=== PATIENT | female | born 1975 | race Caucasian/White ===

== ENCOUNTER → 2016-11-27 | Outpatient (CLI) | payer BC ==
--- NOTE | 2016-11-27 18:45 | PCVCIMAG ---
APPROVED REPORT Patient Location: Echo lab - TREADMILL STRESS TEST Room #: INDICATIONS: CHEST PAIN WITH EXERTION THE PATIENT EXERCISED ACCORDING TO THE LUIS MANUEL PROTOCOL FOR 13:19 MINUTES, ACHIEVING A WORK LEVEL OF 17.5 METS. THE RESTING HEART RATE OF 62 BPM MERRITT TO A MAXIMUM HEART RATE OF 179 BPM. THIS VALUE REPRESENTS 98% OF THE MAXIMAL, AGE-PREDICTED HEART RATE. THE RESTING BLOOD PRESSURE OF 120/80 MMHG, MERRTIT TO A MAXIMUM BLOOD PRESSURE OF 160/82 MMHG. THE EXERCISE TEST WAS STOPPED DUE TO FATIGUE. Conclusion Treadmill exercise stress is negative for ischemia in light of A no production of chest pain or angina B no diagnostic EKG changes C no evidence of significant ectopy is noted. D excellent exercise tolerance with an appropriate hemodynamic response
== END | disposition home or self-care (01) ==
LOC: PCVCIMAG 10:50
PROVIDERS: ATTEND Internal Medicine Cardiovascular Disease
DX: R07.89 Other chest pain (principal)
CPT/HCPCS: 93017